=== PATIENT | male | born 1960 | race American Indian/Alaskan Native ===

== ENCOUNTER 2016-05-24 13:04 | Emergency (ER) | payer MEDICAID ==
--- NOTE | 2016-05-24 14:44 | XRay Report ---
ROUTINE CHEST, TWO VIEWS: HISTORY: Shortness of breath. Compared to 07/18/15. The dual-lumen right IJ catheter remains in same position terminating at the cavoatrial junction. Heart size is normal. Mild pulmonary venous congestion is suspected. The lungs are clear. No evidence for pneumonia, CHF or pneumothorax. IMPRESSION: Mild pulmonary venous congestion.
[2016-05-24 15:12] LABS: Hematocrit 45.3 % (35.5-45.6); Hemoglobin 14.7 gm/dl (11.8-15.2); Mean Corpuscular HGB Conc 33 % (32-34); Mean Corpuscular Hemoglobin 27 pg (28-32); Mean Corpuscular Volume 82 fl (84-94); Platelet Count 246 K/mm3 (140-440); Red Blood Count 5.53 M/mm3 (3.65-5.03); Red Cell Distribution Width 19.1 % (13.2-15.2); White Blood Count 3.3 K/mm3 (4.5-11.0)
[2016-05-24 15:32] LABS: BUN/Creatinine Ratio 3.22; Chloride 91.3 mmol/L (98-107); Potassium 4.6 mmol/L (3.6-5.0)
[2016-05-24] MEDS ORDERED: ZOFRAN ODT PO ONE (21:03)
[2016-05-24] MEDS ORDERED: TYLENOL ONE (21:53)
[2016-05-24] MEDS ORDERED: TYLENOL PO ONE (21:59)
--- NOTE | 2016-05-24 22:13 | Emergency Department Report ---
ED General Adult HPI - General Chief complaint: Pain General Stated complaint: FLU SYMPTOMS Time Seen by Provider: 05/24/16 20:51 Source: patient Mode of arrival: Ambulatory Limitations: No Limitations - History of Present Illness Initial comments: 55-year-old male presents to the emergency department complaining of flulike symptoms. Patient states that symptoms began yesterday during dialysis. He reports fever, headache, chest discomfort, and generalized body aches. He states he did vomit one time earlier today. There has been no diarrhea. There are no other complaints. -: Gradual, days(s) (1) Severity scale (0 -10): 10 Quality: aching Consistency: constant Improves with: none Worsens with: none Associated Symptoms: fever/chills, headaches Treatments Prior to Arrival: none - Related Data Home Medications Medication Instructions Recorded Confirmed Last Taken amLODIPine [Norvasc] 10 mg PO DAILY 07/18/15 03/29/16 03/28/16 Previous Rx's Medication Instructions Recorded Last Taken Type Carvedilol [Coreg] 25 mg PO BID #120 tablet 05/19/15 03/29/16 07:00 Rx Furosemide [Lasix TAB] 40 mg PO QDAY #90 tablet 05/19/15 03/29/16 07:00 Rx hydrALAZINE [Apresoline TAB] 50 mg PO TID #90 tablet 12/01/15 03/29/16 07:00 Rx Oseltamivir [Tamiflu] 75 mg PO BID #10 cap 05/24/16 Unknown Rx Allergies Allergy/AdvReac Type Severity Reaction Status Date / Time Penicillins Allergy Anaphylaxis Verified 04/30/15 20:00 ED Review of Systems ROS: Stated complaint: FLU SYMPTOMS Other details as noted in HPI Comment: All other systems reviewed and negative Constitutional: fever Cardiovascular: chest pain Musculoskeletal: myalgia Neurological: headache ED Past Medical Hx - Past Medical History Previous Medical History?: Yes Hx Hypertension: Yes Hx Congestive Heart Failure: Yes Hx Renal Disease: Yes (diaylsis mon,wed,sat) Hx Asthma: Yes - Surgical History Past Surgical History?: Yes Additional Surgical History: vas cath to right chest - Family History Family history: no significant - Social History Smoking Status: Never Smoker Substance Use Type: Prescribed - Medications Home Medications: Home Medications Medication Instructions Recorded Confirmed Last Taken Type Carvedilol [Coreg] 25 mg PO BID #120 tablet 05/19/15 03/29/16 03/29/16 07:00 Rx Furosemide [Lasix TAB] 40 mg PO QDAY #90 tablet 05/19/15 03/29/16 03/29/16 07: 00 Rx amLODIPine [Norvasc] 10 mg PO DAILY 07/18/15 03/29/16 03/28/16 History hydrALAZINE [Apresoline TAB] 50 mg PO TID #90 tablet 12/01/15 03/29/16 03/29/16 07:00 Rx Oseltamivir [Tamiflu] 75 mg PO BID #10 cap 05/24/16 Unknown Rx ED Physical Exam - General Limitations: No Limitations General appearance: alert, in no apparent distress - Head Head exam: Present: atraumatic, normocephalic - Eye Eye exam: Present: normal appearance, PERRL, EOMI - ENT ENT exam: Present: normal exam, normal orophraynx, mucous membranes moist - Neck Neck exam: Present: normal inspection, full ROM. Absent: tenderness - Respiratory Respiratory exam: Present: normal lung sounds bilaterally, other (Vas-Cath to right anterior chest wall). Absent: respiratory distress, chest wall tenderness - Cardiovascular Cardiovascular Exam: Present: regular rate, normal rhythm, normal heart sounds - GI/Abdominal GI/Abdominal exam: Present: soft, normal bowel sounds. Absent: distended, tenderness - Extremities Exam Extremities exam: Present: normal inspection, full ROM. Absent: tenderness - Back Exam Back exam: Present: normal inspection, full ROM. Absent: tenderness - Neurological Exam Neurological exam: Present: alert, oriented X3. Absent: motor sensory deficit - Skin Skin exam: Present: warm, dry, intact ED Course Vital Signs 05/24/16 05/24/16 05/24/16 13:08 20:48 20:49 Temperature 99.6 F 98.0 F Pulse Rate 94 H 87 Respiratory 20 22 22 Rate Blood Pressure 152/110 Blood Pressure 174/113 [Left] O2 Sat by Pulse 94 95 95 Oximetry ED Medical Decision Making - Lab Data Result diagrams: 05/24/16 14:41 05/24/16 14:41 - Radiology Data Radiology results: report reviewed Chest x-ray shows mild venous congestion. There is no infiltrate or effusion. - Medical Decision Making Lab results reviewed and discussed with the patient. Since the patient's symptoms began less than 48 hours ago, he will be started on Tamiflu. I have spoken with Dr. Hairston, nephrology, to inform the outpatient dialysis center. Patient will be discharged home at this time. - Differential Diagnosis viral syndrome, influenza, pneumonia Critical care attestation.: If time is entered above; I have spent that time in minutes in the direct care of this critically ill patient, excluding procedure time. ED Disposition Clinical Impression: Influenza B Disposition: DISCHARGED TO HOME OR SELFCARE Is pt being admited?: No Condition: Stable Instructions: Influenza (ED) Prescriptions: Oseltamivir [Tamiflu] 75 mg PO BID #10 cap Referrals: VALENTIN YOON MD [Primary Care Provider] - 3-5 Days Time of Disposition: 22:48
[2016-05-24 22:55] VITALS: BP 174/81
== END 2016-05-24 22:57 | disposition home or self-care (01) ==
LOC: ED 13:04
DX: J11.1 Influenza due to unidentified influenza virus with other respiratory manifestations (principal); I50.9 Heart failure, unspecified; I12.0 Hypertensive chronic kidney disease with stage 5 chronic kidney disease or end stage renal disease; N18.6 End stage renal disease; Z99.2 Dependence on renal dialysis; J45.909 Unspecified asthma, uncomplicated
CPT/HCPCS: 36415; 71020; 80048; 85025; 87040; 87400; 93005; 93010; 99284; Q0162